=== PATIENT | female | born 1945 | race Caucasian/White ===

== ENCOUNTER 2021-03-13 21:29 | Observation (INO) ==
[2021-03-14] MEDS ORDERED: Perflutren Lipid Microsphere 1.3 ML in 0.9 % Sodium Chloride 8.7 ML IVP PRN (01:44)
[2021-03-14] MEDS ORDERED: Nitroglycerin 0.4 MG TAB.SUBL SL PRN (01:45)
[2021-03-14] MEDS ORDERED: Naloxone 0.4 MG/ML INJ IVP PRN (01:45)
[2021-03-14] MEDS ORDERED: Ondansetron 4 MG/2 ML VIAL IVP PRN (01:45)
[2021-03-14 02:35] LABS: Basophils # 0.1 K/mcL (0.0-0.2); Eosinophils # 0.4 K/mcL (0.0-0.6); Eosinophils % 4.9 %; Hematocrit 36.3 % (35.3-44.9); Hemoglobin 11.7 g/dL (11.5-15.4); Immature Granulocytes % 0.3 % (0-4); Lymphocytes # 2.3 K/mcL (0.6-4.6); Lymphocytes % 29.4 %; Mean Corpuscular HGB Conc 32.2 g/dL (31.6-35.5); Mean Corpuscular Hemoglobin 31.4 pg (28.0-33.3); Mean Corpuscular Volume 97.3 fL (83.0-100.0); Mean Platelet Volume 9.1 fL (9.4-12.4); Monocytes # 0.8 K/mcL (0.0-1.3); Monocytes % 9.7 %; Neutrophils # 4.2 K/mcL (1.6-8.9); Platelet Count 342 K/mcL (140-400); Red Blood Count 3.73 M/mcL (3.82-4.97); Red Cell Distribution Width 13.2 % (11.5-14.5); Segmented Neutrophils % 54.7 %; White Blood Count 7.7 K/mcL (4.3-11.1)
[2021-03-14 02:57] LABS: BUN/Creatinine Ratio 19 (6-26); Blood Urea Nitrogen 14 mg/dL (8-23); Carbon Dioxide 26 mEq/L (23-29); Chloride 107 mEq/L (98-107); Chol/HDL Ratio 2.2 (0-4.9); Cholesterol 179 mg/dL (< 200); Glucose 93 mg/dL (70-105); HDL Cholesterol 80 mg/dL (40-59); LDL Cholesterol,Calculated 87 mg/dL (< 100); Osmolality,Calculated 288 (280-300); Potassium 4.1 mEq/L (3.5-5.1); Sodium 139 mEq/L (136-145); Triglycerides 58 mg/dL (< 150); eGFR For African Americans > 60 (> 60); eGFR For Non-African Americans > 60 (> 60)
[2021-03-14] MEDS ORDERED: *HR* Heparin 5,000 UNIT/ML VIAL IVP ONE (03:03)
[2021-03-14] MEDS ORDERED: *HR* Heparin 5,000 UNIT/ML VIAL IVP PRN ×2 (03:03)
[2021-03-14] MEDS ORDERED: Heparin 25,000UNIT/250ML 1/2NS 25,000 UNIT/250 ML IV.SOLN IVC SCH (03:15)
[2021-03-14 04:02] LABS: Hematocrit 36.1 % (35.3-44.9); Hemoglobin 11.6 g/dL (11.5-15.4); Mean Corpuscular HGB Conc 32.1 g/dL (31.6-35.5); Mean Corpuscular Hemoglobin 31.4 pg (28.0-33.3); Mean Corpuscular Volume 97.6 fL (83.0-100.0); Platelet Count 326 K/mcL (140-400); Red Cell Distribution Width 13.2 % (11.5-14.5); White Blood Count 7.9 K/mcL (4.3-11.1)
[2021-03-14 04:12] LABS: Heparin anti-factor XA UFH < 0.04 IU/mL (0.30-0.70); Prothrombin Time 11.2 Seconds (9.4-12.1)
[2021-03-14] MEDS ORDERED: Aspirin 81 MG TAB.CHEW PO SCH (09:00)
[2021-03-14] MEDS ORDERED: carvediloL 6.25 MG TABLET PO SCH (09:30)
[2021-03-14] MEDS ORDERED: *HR* Heparin 10,000 UNIT/10 ML VIAL ONE (10:42)
[2021-03-14] MEDS ORDERED: ISOVUE-370 200 ML INFUS..BTL ONE (10:42)
[2021-03-14] MEDS ORDERED: Nitroglycerin 1,000 MCG/5 ML VIAL IV ONE (10:42)
[2021-03-14] MEDS ORDERED: Heparin 1,000 UNITS/500 mL 500 ML ONE (10:42)
[2021-03-14] MEDS ORDERED: 0.9 % Sodium Chloride 2,000 ML ONE (10:42)
[2021-03-14] MEDS ORDERED: *HR* FentaNYL (PF) 100 MCG/2 ML VIAL ONE (11:18)
[2021-03-14] MEDS ORDERED: *HR* Midazolam HCl 2 MG/2 ML VIAL ONE (11:18)
[2021-03-14] MEDS ORDERED: 0.9 % Sodium Chloride 1,000 ML IVC SCH (12:30)
[2021-03-14 14:36] LABS: Adenovirus Not Detected (Not Detect); Bordetella Pertussis Not Detected (Not Detect); Chlamydophila pneumoniae Not Detected (Not Detect); Coronavirus 229E Not Detected (Not Detect); Coronavirus HKU1 Not Detected (Not Detect); Coronavirus NL63 Not Detected (Not Detect); Coronavirus OC43 Not Detected (Not Detect); Human Metapneumovirus Not Detected (Not Detect); Human Rhinovirus/Enterovirus Not Detected (Not Detect); Influenza A Subtype 2009 H1 Not Detected (Not Detect); Influenza B Not Detected (Not Detect); Mycoplasma pneumoniae Not Detected (Not Detect); Parainfluenza Virus 1 Not Detected (Not Detect); Parainfluenza Virus 2 Not Detected (Not Detect); Parainfluenza Virus 3 Not Detected (Not Detect); Parainfluenza Virus 4 Not Detected (Not Detect); Respiratory Syncytial Virus Not Detected (Not Detect); SARS-CoV-2 Not Detected (Not Detect)
[2021-03-14 15:58] VITALS: BP 145/75
== END 2021-03-14 15:53 | disposition other institution (70) ==
LOC: 3BNU → SUATTDRO 23:55
PROVIDERS: ADMIT Internal Medicine; ATTEND Internal Medicine

== ENCOUNTER 2021-04-09 12:45 | Observation (INO) ==
[2021-04-09] MEDS ORDERED: Acetaminophen 325 MG TABLET PO PRN (16:49)
[2021-04-09] MEDS ORDERED: Ondansetron ODT 4 MG TAB.RAPDIS SL PRN (16:49)
[2021-04-09 18:35] LABS: Hematocrit 32.1 % (35.3-44.9); Hemoglobin 10.3 g/dL (11.5-15.4); Mean Corpuscular HGB Conc 32.1 g/dL (31.6-35.5); Mean Corpuscular Hemoglobin 31.2 pg (28.0-33.3); Mean Corpuscular Volume 97.3 fL (83.0-100.0); Mean Platelet Volume 9.4 fL (9.4-12.4); Platelet Count 442 K/mcL (140-400); Red Cell Distribution Width 13.1 % (11.5-14.5)
[2021-04-09 18:53] LABS: Alanine Aminotransferase 18 Units/L (7-52); Albumin/Globulin Ratio 1.6 (1.1-2.2); Alkaline Phosphatase 48 Units/L (34-104); Aspartate Amino Transferase 24 Units/L (13-39); BUN/Creatinine Ratio 17 (6-26); Bilirubin,Total 0.6 mg/dL (0.3-1.0); Blood Urea Nitrogen 12 mg/dL (8-23); Calcium 9.1 mg/dL (8.6-10.3); Carbon Dioxide 25 mEq/L (23-29); Chloride 105 mEq/L (98-107); Globulin 2.5 g/dL (2.4-3.5); Glucose 96 mg/dL (70-105); Magnesium 1.8 mg/dL (1.6-2.6); Osmolality,Calculated 286 (280-300); Phosphorous 3.6 mg/dL (2.7-4.5); Potassium 3.8 mEq/L (3.5-5.1); Sodium 138 mEq/L (136-145); Total Protein 6.5 g/dL (6.4-8.9); eGFR For African Americans > 60 (> 60); eGFR For Non-African Americans > 60 (> 60)
[2021-04-09] MEDS ORDERED: *HR* Rivaroxaban 10 MG TABLET PO SCH (21:17)
[2021-04-10 05:44] LABS: Hematocrit 28.8 % (35.3-44.9); Hemoglobin 9.5 g/dL (11.5-15.4); Mean Corpuscular Hemoglobin 31.8 pg (28.0-33.3); Mean Corpuscular Volume 96.3 fL (83.0-100.0); Mean Platelet Volume 9.3 fL (9.4-12.4); Platelet Count 347 K/mcL (140-400); Red Blood Count 2.99 M/mcL (3.82-4.97); White Blood Count 6.6 K/mcL (4.3-11.1)
[2021-04-10 06:05] LABS: BUN/Creatinine Ratio 18 (6-26); Blood Urea Nitrogen 14 mg/dL (8-23); Calcium 8.8 mg/dL (8.6-10.3); Carbon Dioxide 24 mEq/L (23-29); Chloride 107 mEq/L (98-107); Glucose 100 mg/dL (70-105); Osmolality,Calculated 289 (280-300); Potassium 3.5 mEq/L (3.5-5.1); Sodium 139 mEq/L (136-145); eGFR For African Americans > 60 (> 60); eGFR For Non-African Americans > 60 (> 60)
[2021-04-10 07:08] VITALS: BP 115/62
[2021-04-10] MEDS ORDERED: carvediloL 6.25 MG TABLET PO SCH (08:00)
[2021-04-10] MEDS ORDERED: DilTIAZem CD (24hr) 120 MG CAP.ER.24H PO SCH (09:00)
[2021-04-10] MEDS ORDERED: Aspirin 81 MG TAB.CHEW PO SCH (09:00)
[2021-04-10] MEDS ORDERED: Isosorbide MONOnitrate (24 HR) 30 MG TAB.ER.24H PO SCH (09:00)
[2021-04-10 10:08] LABS: Troponin I < 0.03 ng/mL (< 0.04)
== END 2021-04-10 12:27 | disposition home or self-care (01) ==
LOC: 3BNU → SUATTDRO 16:05
PROVIDERS: ADMIT Internal Medicine; ATTEND Internal Medicine

== ENCOUNTER 2021-05-08 10:38 | Inpatient (IN) ==
[2021-05-08] MEDS ORDERED: Naloxone 0.4 MG/ML INJ IVP PRN (13:58)
[2021-05-08] MEDS ORDERED: Melatonin 3 MG TABLET PO PRN (13:58)
[2021-05-08] MEDS ORDERED: Ondansetron 4 MG/2 ML VIAL IVP PRN (13:58)
[2021-05-08] MEDS ORDERED: Acetaminophen 325 MG TABLET PO PRN (13:58)
[2021-05-08] MEDS ORDERED: *HR* Metoprolol 5 MG/5 ML VIAL IVP ONE (14:54)
[2021-05-08] MEDS ORDERED: DilTIAZem CD (24hr) 120 MG CAP.ER.24H PO ONE (15:48)
[2021-05-08] MEDS: carvediloL 6.25 MG TABLET PO SCH (16:12)
[2021-05-08] MEDS: *HR* Heparin 5,000 UNIT/ML VIAL SQ SCH (21:06)
[2021-05-09 05:08] LABS: Hematocrit 33.9 % (35.3-44.9); Hemoglobin 11.2 g/dL (11.5-15.4); Mean Corpuscular Hemoglobin 29.9 pg (28.0-33.3); Mean Corpuscular Volume 90.6 fL (83.0-100.0); Platelet Count 481 K/mcL (140-400); Red Blood Count 3.74 M/mcL (3.82-4.97); Red Cell Distribution Width 12.2 % (11.5-14.5); White Blood Count 8.4 K/mcL (4.3-11.1)
[2021-05-09 05:28] LABS: BUN/Creatinine Ratio 13 (6-26); Blood Urea Nitrogen 9 mg/dL (8-23); Calcium 9.2 mg/dL (8.6-10.3); Carbon Dioxide 23 mEq/L (23-29); Chloride 102 mEq/L (98-107); Glucose 95 mg/dL (70-105); Magnesium 1.7 mg/dL (1.6-2.6); Osmolality,Calculated 276 (280-300); Sodium 134 mEq/L (136-145); Troponin I < 0.03 ng/mL (< 0.04); eGFR For African Americans > 60 (> 60); eGFR For Non-African Americans > 60 (> 60)
[2021-05-09] MEDS: *HR* Heparin 5,000 UNIT/ML VIAL SQ SCH (05:37)
[2021-05-09] MEDS ORDERED: Isosorbide MONOnitrate (24 HR) 30 MG TAB.ER.24H PO SCH (09:00)
[2021-05-09] MEDS: Aspirin 81 MG TAB.CHEW PO SCH (09:24)
[2021-05-09] MEDS: carvediloL 6.25 MG TABLET PO SCH (09:24)
[2021-05-09] MEDS: DilTIAZem CD (24hr) 120 MG CAP.ER.24H PO SCH (09:25)
[2021-05-09] MEDS ORDERED: Perflutren Lipid Microsphere 1.3 ML in 0.9 % Sodium Chloride 8.7 ML IVP PRN (09:57)
[2021-05-09] MEDS ORDERED: *HR* Heparin 5,000 UNIT/ML VIAL IVP ONE (10:02)
[2021-05-09] MEDS ORDERED: *HR* Heparin 5,000 UNIT/ML VIAL IVP PRN ×2 (10:02)
[2021-05-09] MEDS ORDERED: Heparin 25,000UNIT/250ML 1/2NS 25,000 UNIT/250 ML IV.SOLN IVC SCH (10:15)
[2021-05-09 11:23] LABS: Hemoglobin 11.3 g/dL (11.5-15.4); Mean Corpuscular HGB Conc 33.2 g/dL (31.6-35.5); Mean Corpuscular Hemoglobin 29.9 pg (28.0-33.3); Mean Corpuscular Volume 89.9 fL (83.0-100.0); Mean Platelet Volume 9.1 fL (9.4-12.4); Platelet Count 495 K/mcL (140-400); Red Blood Count 3.78 M/mcL (3.82-4.97); Red Cell Distribution Width 12.2 % (11.5-14.5); White Blood Count 8.5 K/mcL (4.3-11.1)
[2021-05-09 12:26] LABS: Heparin anti-factor XA UFH 0.06 IU/mL (0.30-0.70); Prothrombin Time 11.7 Seconds (9.4-12.1)
[2021-05-09] MEDS: *HR* Enoxaparin 60 MG/0.6 ML SYRINGE SQ SCH (21:08)
[2021-05-10] MEDS: *HR* Enoxaparin 60 MG/0.6 ML SYRINGE SQ SCH ×2 (05:38→17:37)
[2021-05-10] MEDS: DilTIAZem CD (24hr) 120 MG CAP.ER.24H PO SCH (10:05)
[2021-05-10] MEDS: Aspirin 81 MG TAB.CHEW PO SCH (10:05)
[2021-05-11] MEDS: *HR* Enoxaparin 60 MG/0.6 ML SYRINGE SQ SCH ×2 (05:25→17:28)
[2021-05-11] MEDS: DilTIAZem CD (24hr) 120 MG CAP.ER.24H PO SCH (07:40)
[2021-05-11] MEDS: Aspirin 81 MG TAB.CHEW PO SCH (07:40)
[2021-05-12 01:43] LABS: Hematocrit 31.3 % (35.3-44.9); Hemoglobin 9.9 g/dL (11.5-15.4); Mean Corpuscular HGB Conc 31.6 g/dL (31.6-35.5); Mean Corpuscular Hemoglobin 28.9 pg (28.0-33.3); Mean Corpuscular Volume 91.3 fL (83.0-100.0); Mean Platelet Volume 9.4 fL (9.4-12.4); Platelet Count 421 K/mcL (140-400); Red Blood Count 3.43 M/mcL (3.82-4.97); Red Cell Distribution Width 12.4 % (11.5-14.5); White Blood Count 7.7 K/mcL (4.3-11.1)
[2021-05-12 01:48] LABS: Prothrombin Time 12.1 Seconds (9.4-12.1)
[2021-05-12 02:08] LABS: BUN/Creatinine Ratio 19 (6-26); Blood Urea Nitrogen 14 mg/dL (8-23); Calcium 8.9 mg/dL (8.6-10.3); Carbon Dioxide 23 mEq/L (23-29); Chloride 104 mEq/L (98-107); Glucose 111 mg/dL (70-105); Magnesium 1.9 mg/dL (1.6-2.6); Osmolality,Calculated 281 (280-300); Potassium 3.9 mEq/L (3.5-5.1); Sodium 135 mEq/L (136-145); Troponin I < 0.03 ng/mL (< 0.04); eGFR For African Americans > 60 (> 60); eGFR For Non-African Americans > 60 (> 60)
[2021-05-12] MEDS: Aspirin 81 MG TAB.CHEW PO SCH (09:16)
[2021-05-12] MEDS: DilTIAZem CD (24hr) 120 MG CAP.ER.24H PO SCH (09:16)
[2021-05-12 10:26] VITALS: BP 150/76
== END 2021-05-12 16:27 | disposition home or self-care (01) | DRG 309 ==
LOC: 2NENU → SUATTDRO 13:29
PROVIDERS: ADMIT Internal Medicine; ATTEND Internal Medicine

== ENCOUNTER 2021-07-17 11:54 | Observation (INO) ==
[2021-07-17 12:49] LABS: Basophils # 0.1 K/mcL (0.0-0.2); Basophils % 1.3 %; Eosinophils # 0.2 K/mcL (0.0-0.6); Eosinophils % 1.6 %; Hematocrit 34.2 % (35.3-44.9); Hemoglobin 11.3 g/dL (11.5-15.4); Immature Granulocytes % 0.3 % (0-4); Lymphocytes # 2.5 K/mcL (0.6-4.6); Lymphocytes % 24.4 %; Mean Corpuscular Volume 81.8 fL (83.0-100.0); Mean Platelet Volume 9.3 fL (9.4-12.4); Monocytes % 9.3 %; Neutrophils # 6.4 K/mcL (1.6-8.9); Platelet Count 565 K/mcL (140-400); Red Blood Count 4.18 M/mcL (3.82-4.97); Red Cell Distribution Width 14.9 % (11.5-14.5); Segmented Neutrophils % 63.1 %; White Blood Count 10.2 K/mcL (4.3-11.1)
[2021-07-17 13:05] LABS: INR 2.6; Prothrombin Time 28.9 Seconds (9.4-12.1)
[2021-07-17 13:13] LABS: BUN/Creatinine Ratio 13 (6-26); Blood Urea Nitrogen 11 mg/dL (8-23); Calcium 9.5 mg/dL (8.6-10.3); Carbon Dioxide 23 mEq/L (23-29); Chloride 102 mEq/L (98-107); Glucose 107 mg/dL (70-105); Osmolality,Calculated 280 (280-300); Potassium 4.1 mEq/L (3.5-5.1); Sodium 135 mEq/L (136-145); eGFR For African Americans > 60 (> 60); eGFR For Non-African Americans > 60 (> 60)
[2021-07-17] MEDS ORDERED: Naloxone 0.4 MG/ML INJ IVP PRN (14:31)
[2021-07-17] MEDS ORDERED: DilTIAZem CD (24hr) 120 MG CAP.ER.24H PO ONE (16:37)
[2021-07-17] MEDS ORDERED: DilTIAZem CD (24hr) 120 MG CAP.ER.24H PO SCH (18:30)
[2021-07-17] MEDS: *HR* Warfarin 5 MG TABLET PO SCH (18:57)
[2021-07-18 00:22] LABS: Basophils # 0.1 K/mcL (0.0-0.2); Basophils % 1.3 %; Eosinophils # 0.2 K/mcL (0.0-0.6); Eosinophils % 2.4 %; Hematocrit 29.2 % (35.3-44.9); Immature Granulocytes % 0.3 % (0-4); Lymphocytes # 2.1 K/mcL (0.6-4.6); Mean Corpuscular HGB Conc 32.9 g/dL (31.6-35.5); Mean Corpuscular Hemoglobin 26.6 pg (28.0-33.3); Mean Corpuscular Volume 80.9 fL (83.0-100.0); Mean Platelet Volume 9.2 fL (9.4-12.4); Monocytes # 0.8 K/mcL (0.0-1.3); Monocytes % 10.9 %; Platelet Count 444 K/mcL (140-400); Red Blood Count 3.61 M/mcL (3.82-4.97); Red Cell Distribution Width 14.8 % (11.5-14.5); Segmented Neutrophils % 56.1 %; White Blood Count 7.1 K/mcL (4.3-11.1)
[2021-07-18 00:25] LABS: Hemoglobin 9.6 g/dL (11.5-15.4)
[2021-07-18 00:30] LABS: INR 2.2; Prothrombin Time 25.4 Seconds (9.4-12.1)
[2021-07-18 00:40] LABS: Reactive Lymphocytes Present (Not Present)
[2021-07-18 00:41] LABS: Platelet Estimate Normal (Normal)
[2021-07-18 00:42] LABS: BUN/Creatinine Ratio 18 (6-26); Blood Urea Nitrogen 13 mg/dL (8-23); Calcium 9.1 mg/dL (8.6-10.3); Carbon Dioxide 22 mEq/L (23-29); Chloride 106 mEq/L (98-107); Glucose 93 mg/dL (70-105); Magnesium 1.8 mg/dL (1.6-2.6); Osmolality,Calculated 280 (280-300); Phosphorous 4.4 mg/dL (2.7-4.5); Sodium 135 mEq/L (136-145); eGFR For African Americans > 60 (> 60); eGFR For Non-African Americans > 60 (> 60)
[2021-07-18] MEDS: *HR* Warfarin 5 MG TABLET PO SCH (08:49)
[2021-07-18] MEDS ORDERED: DilTIAZem CD (24hr) 240 MG CAP.ER.24H PO SCH (09:00)
[2021-07-18] MEDS ORDERED: DILTIAZEM HCL 120 MG PO SCH (09:00)
[2021-07-18] MEDS ORDERED: Cholecalciferol (D-3) 1,000 UNIT (25MCG) TABLET PO SCH (09:00)
[2021-07-18 11:09] VITALS: BP 147/73; PULSE 63; TEMP 97.9; O2SAT 97
[2021-07-19] MEDS ORDERED: *HR* Warfarin 2.5 MG TABLET PO SCH (09:00)
== END 2021-07-18 11:36 | disposition home or self-care (01) ==
LOC: 3BNU 11:54 → EMEROOARM 11:54 → 3BNU 14:50
PROVIDERS: ADMIT General Practice; ATTEND General Practice

== ENCOUNTER 2021-11-10 20:59 | Inpatient (IN) ==
[2021-11-10] MEDS ORDERED: Melatonin 3 MG TABLET PO PRN (23:41)
[2021-11-10] MEDS ORDERED: Naloxone 0.4 MG/ML INJ IVP PRN (23:41)
[2021-11-10] MEDS ORDERED: *HR* Promethazine 25 MG/ML VIAL IM PRN (23:41)
[2021-11-10] MEDS ORDERED: Acetaminophen 325 MG TABLET PO PRN (23:41)
[2021-11-10] MEDS ORDERED: *HR* Dextrose 50 % in Water (Syg) 50 ML SYRINGE IVP PRN (23:49)
[2021-11-10] MEDS ORDERED: D5% in Water 1,000 ML IVC PRN (23:49)
[2021-11-10] MEDS ORDERED: Dextrose Gel 15 GM/37.5 ML TUBE PO PRN ×2 (23:49)
[2021-11-10] MEDS ORDERED: Saliva Stimulant 44.3ml BOTTLE PO PRN (23:51)
[2021-11-11] MEDS ORDERED: Ipratropium 1 PUFF INHALER IH PRN (00:31)
[2021-11-11] MEDS ORDERED: Pantoprazole 40 MG VIAL IVP ONE (00:32)
[2021-11-11 02:11] LABS: Basophils % 0.3 %; Mean Platelet Volume 9.7 fL (9.4-12.4); Nucleated Red Blood Cells 0.3 /100 WBC (0)
[2021-11-11 02:12] LABS: Hematocrit 16.9 % (35.3-44.9); Immature Granulocytes % 0.6 % (0-4); Lymphocytes # 1.4 K/mcL (0.6-4.6); Lymphocytes % 20.8 %; Mean Corpuscular HGB Conc 32.5 g/dL (31.6-35.5); Mean Corpuscular Hemoglobin 27.5 pg (28.0-33.3); Mean Corpuscular Volume 84.5 fL (83.0-100.0); Monocytes # 0.6 K/mcL (0.0-1.3); Monocytes % 9.1 %; Neutrophils # 4.7 K/mcL (1.6-8.9); Platelet Count 321 K/mcL (140-400); Red Cell Distribution Width 16.7 % (11.5-14.5); Segmented Neutrophils % 69.2 %; White Blood Count 6.8 K/mcL (4.3-11.1)
[2021-11-11 02:14] LABS: Hemoglobin 5.5 g/dL (11.5-15.4)
[2021-11-11 02:20] LABS: INR 3.4; Prothrombin Time 37.8 Seconds (9.4-12.1)
[2021-11-11 02:23] LABS: Activated Partial Thrombo Time 38.4 Seconds (26.0-36.0)
[2021-11-11 02:24] LABS: Alanine Aminotransferase 11 Units/L (7-52); Albumin 3.2 g/dL (3.5-5.7); Albumin/Globulin Ratio 1.6 (1.1-2.2); Alkaline Phosphatase 34 Units/L (34-104); Aspartate Amino Transferase 23 Units/L (13-39); BUN/Creatinine Ratio 32 (6-26); Bilirubin,Total 0.4 mg/dL (0.3-1.0); Blood Urea Nitrogen 23 mg/dL (8-23); Carbon Dioxide 23 mEq/L (23-29); Chloride 99 mEq/L (98-107); Glucose 99 mg/dL (70-105); Magnesium 1.9 mg/dL (1.6-2.6); Osmolality,Calculated 272 (280-300); Phosphorous 3.9 mg/dL (2.7-4.5); Potassium 3.9 mEq/L (3.5-5.1); Sodium 129 mEq/L (136-145); Total Protein 5.2 g/dL (6.4-8.9); eGFR For African Americans > 60 (> 60); eGFR For Non-African Americans > 60 (> 60)
[2021-11-11 02:26] LABS: C-Reactive Protein < 5 mg/L (Less than 10); Lactate Dehydrogenase 146 Units/L (140-271)
[2021-11-11 02:33] LABS: Troponin I 0.38 ng/mL (< 0.04)
[2021-11-11] MEDS ORDERED: 0.9 % Sodium Chloride 250 ML ONE ×2 (03:47→10:41)
[2021-11-11 04:03] LABS: Ferritin 48 ng/mL (10-120)
[2021-11-11] MEDS: Ipratropium 1 PUFF INHALER IH SCH ×5 (04:21→20:35)
[2021-11-11] MEDS ORDERED: Ondansetron 4 MG/2 ML VIAL IVP PRN (04:53)
[2021-11-11] MEDS ORDERED: methylPREDNISolone 125 MG/2 ML VIAL IVP PRN (04:53)
[2021-11-11] MEDS ORDERED: EPINEPHrine 1 MG/ML VIAL IM PRN (04:53)
[2021-11-11] MEDS ORDERED: Acetaminophen 325 MG TABLET PO PRN (04:53)
[2021-11-11] MEDS ORDERED: BAMLANIVIMAB IVPB ONE (06:00)
[2021-11-11] MEDS ORDERED: ETESEVIMAB IVPB ONE (06:00)
[2021-11-11] MEDS ORDERED: SODIUM CHLORIDE 0.9% IVPB ONE (06:00)
[2021-11-11] MEDS ORDERED: Perflutren Lipid Microsphere 1.3 ML in 0.9 % Sodium Chloride 8.7 ML IVP PRN (06:19)
[2021-11-11] MEDS: Pantoprazole 40 MG VIAL IVP SCH ×2 (06:37→17:26)
[2021-11-11] MEDS ORDERED: carvediloL 6.25 MG TABLET PO SCH (08:00)
[2021-11-11] MEDS ORDERED: Chlorhexidine Rinse 15 ML MOUTHWASH MM SCH (09:00)
[2021-11-11] MEDS: Nicotine 21 MG PATCH.TD24 TD SCH (09:23)
[2021-11-11] MEDS ORDERED: *HR* Phytonadione 10 MG/ML AMPUL SQ ONE (10:10)
[2021-11-11] MEDS: Budesonide/Formoterol 160/4.5 1 PUFF INH IH SCH ×2 (11:54→20:35)
[2021-11-11 17:25] LABS: Hematocrit 23.8 % (35.3-44.9)
[2021-11-11 17:26] LABS: Hemoglobin 7.5 g/dL (11.5-15.4)
[2021-11-11 22:24] LABS: Hemoglobin 6.8 g/dL (11.5-15.4)
[2021-11-12] MEDS ORDERED: 0.9 % Sodium Chloride 250 ML ONE (02:10)
[2021-11-12] MEDS: Ipratropium 1 PUFF INHALER IH SCH ×4 (04:20→20:27)
[2021-11-12] MEDS: Pantoprazole 40 MG VIAL IVP SCH ×2 (06:34→17:17)
[2021-11-12 08:59] LABS: Hematocrit 25.1 % (35.3-44.9); Mean Corpuscular HGB Conc 33.9 g/dL (31.6-35.5); Mean Corpuscular Hemoglobin 29.1 pg (28.0-33.3); Mean Platelet Volume 9.4 fL (9.4-12.4); Platelet Count 318 K/mcL (140-400); Red Blood Count 2.92 M/mcL (3.82-4.97); Red Cell Distribution Width 16.4 % (11.5-14.5); White Blood Count 6.7 K/mcL (4.3-11.1)
[2021-11-12] MEDS ORDERED: Aspirin 81 MG TAB.CHEW PO SCH (09:00)
[2021-11-12 09:07] LABS: Hemoglobin 8.5 g/dL (11.5-15.4)
[2021-11-12 09:08] LABS: INR 1.1; Prothrombin Time 11.7 Seconds (9.4-12.1)
[2021-11-12 09:28] LABS: Procalcitonin 0.03 ng/mL (0.00-0.15)
[2021-11-12 09:29] LABS: BUN/Creatinine Ratio 18 (6-26); Blood Urea Nitrogen 11 mg/dL (8-23); Calcium 8.1 mg/dL (8.6-10.3); Carbon Dioxide 25 mEq/L (23-29); Chloride 102 mEq/L (98-107); Glucose 97 mg/dL (70-105); Iron 17 mcg/dL (50-170); Osmolality,Calculated 275 (280-300); Potassium 3.5 mEq/L (3.5-5.1); Sodium 133 mEq/L (136-145); Troponin I 0.43 ng/mL (< 0.04); eGFR For African Americans > 60 (> 60); eGFR For Non-African Americans > 60 (> 60)
[2021-11-12 09:43] LABS: Folate 15.4 ng/mL (3.0-16.0)
[2021-11-12 10:41] LABS: Ferritin 34 ng/mL (10-120)
[2021-11-12] MEDS ORDERED: Cyanocobalamin (B-12) 1,000 MCG/ML VIAL SQ ONE (10:45)
[2021-11-12] MEDS: Budesonide/Formoterol 160/4.5 1 PUFF INH IH SCH ×2 (10:59→20:27)
[2021-11-12] MEDS: Nicotine 21 MG PATCH.TD24 TD SCH (11:04)
[2021-11-12] MEDS: Iron Sucrose Complex 250 MG in 0.9 % Sodium Chloride 250 ML IVPB SCH (11:05)
[2021-11-12] MEDS ORDERED: Lidocaine -MPF 2% 5 ML VIAL ONE (12:04)
[2021-11-12] MEDS ORDERED: *HR* Propofol 200 MG/20 ML VIAL IVP ONE ×2 (12:05→12:35)
[2021-11-12] MEDS: Aspirin 81 MG TAB.CHEW PO SCH (14:05)
[2021-11-12] MEDS ORDERED: Warfarin perPT PO PRN (18:00)
[2021-11-12] MEDS ORDERED: *HR* Warfarin 7.5 MG TABLET PO ONE (18:00)
[2021-11-13] MEDS: Ipratropium 1 PUFF INHALER IH SCH ×4 (04:19→21:29)
[2021-11-13] MEDS: Pantoprazole 40 MG VIAL IVP SCH ×2 (06:31→17:48)
[2021-11-13 06:54] LABS: Hematocrit 27.6 % (35.3-44.9); Hemoglobin 8.8 g/dL (11.5-15.4); Mean Corpuscular HGB Conc 31.9 g/dL (31.6-35.5); Mean Corpuscular Hemoglobin 27.8 pg (28.0-33.3); Mean Corpuscular Volume 87.3 fL (83.0-100.0); Mean Platelet Volume 9.5 fL (9.4-12.4); Platelet Count 307 K/mcL (140-400); Red Blood Count 3.16 M/mcL (3.82-4.97)
[2021-11-13 07:04] LABS: Prothrombin Time 10.9 Seconds (9.4-12.1)
[2021-11-13 07:15] LABS: BUN/Creatinine Ratio 14 (6-26); Blood Urea Nitrogen 8 mg/dL (8-23); Carbon Dioxide 25 mEq/L (23-29); Chloride 102 mEq/L (98-107); Glucose 97 mg/dL (70-105); Osmolality,Calculated 276 (280-300); Potassium 3.2 mEq/L (3.5-5.1); Sodium 134 mEq/L (136-145); eGFR For African Americans > 60 (> 60); eGFR For Non-African Americans > 60 (> 60)
[2021-11-13] MEDS: Aspirin 81 MG TAB.CHEW PO SCH (08:32)
[2021-11-13] MEDS: Nicotine 21 MG PATCH.TD24 TD SCH (08:33)
[2021-11-13] MEDS: Iron Sucrose Complex 250 MG in 0.9 % Sodium Chloride 250 ML IVPB SCH (08:33)
[2021-11-13] MEDS: Budesonide/Formoterol 160/4.5 1 PUFF INH IH SCH ×2 (09:32→21:30)
[2021-11-13] MEDS ORDERED: *HR* Warfarin 5 MG TABLET PO ONE (18:00)
[2021-11-14] MEDS: Ipratropium 1 PUFF INHALER IH SCH ×2 (04:02→08:57)
[2021-11-14 06:48] VITALS: BP 122/58; PULSE 76; TEMP 98.3
[2021-11-14 06:53] LABS: Hematocrit 27.6 % (35.3-44.9); Hemoglobin 8.8 g/dL (11.5-15.4); Mean Corpuscular HGB Conc 31.9 g/dL (31.6-35.5); Mean Corpuscular Hemoglobin 27.9 pg (28.0-33.3); Mean Corpuscular Volume 87.6 fL (83.0-100.0); Mean Platelet Volume 9.7 fL (9.4-12.4); Platelet Count 346 K/mcL (140-400); Red Blood Count 3.15 M/mcL (3.82-4.97); Red Cell Distribution Width 17.3 % (11.5-14.5); White Blood Count 6.5 K/mcL (4.3-11.1)
[2021-11-14 07:01] LABS: Prothrombin Time 10.9 Seconds (9.4-12.1)
[2021-11-14 07:11] LABS: BUN/Creatinine Ratio 12 (6-26); Blood Urea Nitrogen 7 mg/dL (8-23); Calcium 8.1 mg/dL (8.6-10.3); Carbon Dioxide 26 mEq/L (23-29); Chloride 105 mEq/L (98-107); Glucose 93 mg/dL (70-105); Osmolality,Calculated 278 (280-300); Potassium 3.7 mEq/L (3.5-5.1); Sodium 135 mEq/L (136-145); eGFR For African Americans > 60 (> 60); eGFR For Non-African Americans > 60 (> 60)
[2021-11-14] MEDS: Budesonide/Formoterol 160/4.5 1 PUFF INH IH SCH (08:57)
[2021-11-14 08:59] VITALS: O2SAT 96
[2021-11-14] MEDS: Nicotine 21 MG PATCH.TD24 TD SCH (10:26)
== END 2021-11-14 12:30 | disposition home or self-care (01) | DRG 811 ==
LOC: 2ANU → OBSVTOIN 23:03 → SUATTDRO 23:03
PROVIDERS: ADMIT Internal Medicine; ATTEND Internal Medicine